=== PATIENT | female | born 1950 | race Caucasian/White ===

== ENCOUNTER 2018-02-11 10:51 | Emergency (ER) | payer MEDICARE ==
[~2018-02-11] VITALS: Ht 152.4 cm; Wt 56.2 kg
[~2018-02-11 10:51] MED LIST: AMLO10 PO; AMLO5 PO; ASPI81CH; ASPI81CH PO; CYCL10 PO; GERITOL; NAPR220 PO; Prozac20 MG PO
[2018-02-11 11:31] LABS: BASOPHILS ABSOLUTE AUTO 0.05 K/mm3 (0.00-0.23); BASOPHILS PERCENT AUTO 1 % (0-2); EOSINOPHILS ABSOLUTE AUTO 0.04 K/mm3 (0.00-0.68); EOSINOPHILS PERCENT AUTO 1 % (0-6); Hematocrit 44.4 % (33.0-51.0); Hemoglobin 15.2 g/dL (11.5-16.0); IMMATURE GRAN ABSOLUTE AUTO 0.02 K/mm3 (0.00-0.10); IMMATURE GRAN PERCENT AUTO 0 % (0-1); LYMPHOCYTES ABSOLUTE AUTO 2.51 K/mm3 (0.84-5.20); LYMPHOCYTES PERCENT AUTO 32 % (21-46); MONOCYTES ABSOLUTE AUTO 0.37 K/mm3 (0.16-1.47); MONOCYTES PERCENT AUTO 5 % (4-13); Mean Corpuscular HGB 31.1 pg (26.0-34.0); Mean Corpuscular HGB Conc 34.2 g/dL (31.5-36.5); Mean Corpuscular Volume 91 fL (80-100); NEUTROPHILS PERCENT AUTO 62 % (41-73); Platelet Count 273 K/mm3 (150-400); RDW Coefficient Variation 12.9 % (11.7-14.2); RDW Standard Deviation 43.2 fL (35.1-46.3); Red Blood Cell Count 4.89 M/mm3 (3.80-5.20); White Blood Cell Count 7.89 K/mm3 (4.00-11.30)
[2018-02-11 11:54] LABS: Troponin I <0.015 ng/mL (0.000-0.040)
[2018-02-11 11:56] LABS: Alanine Aminotransfer (ALT/SGP 25 U/L (12-78); Albumin, Blood 3.6 g/dL (3.4-5.0); Albumin/Globulin Ratio 0.8 (0.8-1.8); Alk Phos 109 U/L (50-136); Anion Gap 9 mmol/L (6-16); Aspartate Aminotrans (AST/SGOT 25 U/L (12-37); Bilirubin, Total 0.4 mg/dL (0.1-1.0); Blood Urea Nitrogen 23 mg/dL (8-24); Bun/Creatinine Ratio 13.5 (12.0-20.0); CO2, Blood 26 mmol/L (21-32); Calcium, Blood 9.2 mg/dL (8.5-10.1); Chloride, Blood 103 mmol/L (98-108); Globulin, Blood 4.3 g/dL (2.2-4.0); Glomerular Filtration Rate 32 (60-); Glucose, Blood 115 mg/dL (70-99); Sodium, Blood 138 mmol/L (136-145); Total Protein, Blood 7.9 g/dL (6.4-8.2)
[2018-02-11] MEDS ORDERED: Coreg6.25 MG PO (12:52)
[2018-02-11] MEDS ORDERED: Amlodipine Besy10 MG PO (12:52)
== END 2018-02-11 13:04 | disposition home or self-care (01) ==
LOC: ER 10:51
PROVIDERS: Emergency Medicine
DX: I12.9 Hypertensive chronic kidney disease with stage 1 through stage 4 chronic kidney disease, or unspecified chronic kidney disease (principal); N18.9 Chronic kidney disease, unspecified; Z88.2 Allergy status to sulfonamides; Z88.5 Allergy status to narcotic agent; Z88.8 Allergy status to other drugs, medicaments and biological substances; Z79.899 Other long term (current) drug therapy; Z79.82 Long term (current) use of aspirin
CPT/HCPCS: 36415; 80053; 84484; 85025; 93005; 93010; 99283-25

== ENCOUNTER 2018-02-13 19:29 | Inpatient (IN) | payer MEDICARE ==
[~2018-02-13] VITALS: Ht 162.6 cm; Wt 54.1 kg
[~2018-02-13 19:29] MED LIST changes: +Amlodipine Besy10 MG PO; +Coreg6.25 MG PO
[2018-02-13 20:16] LABS: BASOPHILS ABSOLUTE AUTO 0.03 K/mm3 (0.00-0.23); BASOPHILS PERCENT AUTO 0 % (0-2); EOSINOPHILS ABSOLUTE AUTO 0.12 K/mm3 (0.00-0.68); EOSINOPHILS PERCENT AUTO 1 % (0-6); Hematocrit 43.2 % (33.0-51.0); Hemoglobin 14.9 g/dL (11.5-16.0); IMMATURE GRAN ABSOLUTE AUTO 0.01 K/mm3 (0.00-0.10); IMMATURE GRAN PERCENT AUTO 0 % (0-1); LYMPHOCYTES ABSOLUTE AUTO 3.11 K/mm3 (0.84-5.20); LYMPHOCYTES PERCENT AUTO 37 % (21-46); MONOCYTES ABSOLUTE AUTO 0.47 K/mm3 (0.16-1.47); MONOCYTES PERCENT AUTO 6 % (4-13); Mean Corpuscular HGB Conc 34.5 g/dL (31.5-36.5); Mean Corpuscular Volume 90 fL (80-100); Mean Platelet Volume 10.5 fL (9.1-12.4); NEUTROPHILS ABSOLUTE AUTO 4.58 K/mm3 (1.96-9.15); NEUTROPHILS PERCENT AUTO 55 % (41-73); Platelet Count 255 K/mm3 (150-400); RDW Coefficient Variation 12.7 % (11.7-14.2); RDW Standard Deviation 42.4 fL (35.1-46.3); White Blood Cell Count 8.32 K/mm3 (4.00-11.30)
[2018-02-13 20:31] LABS: Alanine Aminotransfer (ALT/SGP 25 U/L (12-78); Albumin, Blood 3.4 g/dL (3.4-5.0); Albumin/Globulin Ratio 0.8 (0.8-1.8); Alk Phos 104 U/L (50-136); Anion Gap 9 mmol/L (6-16); Aspartate Aminotrans (AST/SGOT 27 U/L (12-37); Bilirubin, Total 0.3 mg/dL (0.1-1.0); Blood Urea Nitrogen 29 mg/dL (8-24); Bun/Creatinine Ratio 16.3 (12.0-20.0); CO2, Blood 25 mmol/L (21-32); Calcium, Blood 9.1 mg/dL (8.5-10.1); Chloride, Blood 104 mmol/L (98-108); Creatinine, Blood 1.78 mg/dL (0.40-1.00); Ethanol (Alcohol), Blood, Med <3 mg/dL; Globulin, Blood 4.3 g/dL (2.2-4.0); Glomerular Filtration Rate 30 (60-); Glucose, Blood 144 mg/dL (70-99); Potassium, Blood 3.9 mmol/L (3.5-5.5); Sodium, Blood 138 mmol/L (136-145); Total Protein, Blood 7.7 g/dL (6.4-8.2); Troponin I <0.015 ng/mL (0.000-0.040)
[2018-02-14 06:04] LABS: Source, Urine Clean Catch
[2018-02-14 06:25] LABS: Bilirubin, Urine Neg (Neg); Blood, Urine Neg (Neg); Glucose Qualitative, Urine Neg (Neg); Ketones, Urine Neg (Neg); Leukocyte Esterase, Urine 1+ (Neg); Nitrite, Urine Neg (Neg); Protein, Urine 1+ (Neg); Urobilinogen, Urine NORM (Normal)
[2018-02-14 06:30] LABS: U Cannabinoids Screen DETECTED
[2018-02-14 06:31] LABS: U Amphetamine Screen Not Detected; U Barbituate Screen Not Detected; U Benzodiazapine Screen Not Detected; U Buprenorphine Screen Not Detected; U Cocaine Screen Not Detected; U Methadone Screen Not Detected; U Methamphetamine Screen Not Detected; U Opiates Screen Not Detected; U Oxycodone Screen Not Detected; U Phencyclidine Screen Not Detected; U Propoxyphene Screen Not Detected
[2018-02-14 06:43] LABS: Appearance, Urine Clear (Clear); Color, Urine Yellow (P-Yellow)
[2018-02-14 06:44] LABS: Squamous Epithelial Cells Mod /hpf (Few)
[2018-02-14 06:45] LABS: Bacteria Rare /hpf
[2018-02-14 08:13] LABS: BASOPHILS ABSOLUTE AUTO 0.04 K/mm3 (0.00-0.23); BASOPHILS PERCENT AUTO 1 % (0-2); EOSINOPHILS ABSOLUTE AUTO 0.08 K/mm3 (0.00-0.68); EOSINOPHILS PERCENT AUTO 1 % (0-6); Hematocrit 43.5 % (33.0-51.0); IMMATURE GRAN ABSOLUTE AUTO 0.01 K/mm3 (0.00-0.10); IMMATURE GRAN PERCENT AUTO 0 % (0-1); LYMPHOCYTES ABSOLUTE AUTO 2.37 K/mm3 (0.84-5.20); LYMPHOCYTES PERCENT AUTO 36 % (21-46); MONOCYTES ABSOLUTE AUTO 0.39 K/mm3 (0.16-1.47); MONOCYTES PERCENT AUTO 6 % (4-13); Mean Corpuscular HGB 31.1 pg (26.0-34.0); Mean Corpuscular HGB Conc 34.5 g/dL (31.5-36.5); Mean Corpuscular Volume 90 fL (80-100); Mean Platelet Volume 10.2 fL (9.1-12.4); NEUTROPHILS ABSOLUTE AUTO 3.66 K/mm3 (1.96-9.15); NEUTROPHILS PERCENT AUTO 56 % (41-73); Platelet Count 258 K/mm3 (150-400); RDW Coefficient Variation 12.8 % (11.7-14.2); RDW Standard Deviation 42.5 fL (35.1-46.3); Red Blood Cell Count 4.82 M/mm3 (3.80-5.20); White Blood Cell Count 6.55 K/mm3 (4.00-11.30)
[2018-02-14 08:55] LABS: Alanine Aminotransfer (ALT/SGP 22 U/L (12-78); Albumin, Blood 3.4 g/dL (3.4-5.0); Albumin/Globulin Ratio 0.8 (0.8-1.8); Alk Phos 102 U/L (50-136); Anion Gap 8 mmol/L (6-16); Aspartate Aminotrans (AST/SGOT 22 U/L (12-37); Bilirubin, Total 0.4 mg/dL (0.1-1.0); Blood Urea Nitrogen 26 mg/dL (8-24); Bun/Creatinine Ratio 16.7 (12.0-20.0); CHOL/HDL RATIO 4.5; CO2, Blood 25 mmol/L (21-32); Calcium, Blood 9.2 mg/dL (8.5-10.1); Chloride, Blood 107 mmol/L (98-108); Cholesterol 232 mg/dL (50-200); Creatinine, Blood 1.56 mg/dL (0.40-1.00); Globulin, Blood 4.3 g/dL (2.2-4.0); Glomerular Filtration Rate 35 (60-); Glucose, Blood 89 mg/dL (70-99); HDL Cholesterol 51 mg/dL (>39); LDL/HDL RATIO 3.1; Low Density Lipoprotein Chol 156 mg/dL (0-110); Sodium, Blood 140 mmol/L (136-145); Total Protein, Blood 7.7 g/dL (6.4-8.2); Triglycerides 126 mg/dL (30-160); Very Low Density Lipoprot Chol 25 mg/dL (6-32)
[2018-02-14 18:31] LABS: Uric Acid, Blood 5.4 mg/dL (2.6-6.0)
[2018-02-14 18:33] LABS: Thyroid Stimulating Hormone 1.97 uIU/mL (0.360-4.800)
[2018-02-15 06:03] LABS: BASOPHILS ABSOLUTE AUTO 0.03 K/mm3 (0.00-0.23); BASOPHILS PERCENT AUTO 1 % (0-2); EOSINOPHILS PERCENT AUTO 2 % (0-6); Hematocrit 40.8 % (33.0-51.0); Hemoglobin 13.9 g/dL (11.5-16.0); IMMATURE GRAN ABSOLUTE AUTO 0.01 K/mm3 (0.00-0.10); IMMATURE GRAN PERCENT AUTO 0 % (0-1); LYMPHOCYTES ABSOLUTE AUTO 2.94 K/mm3 (0.84-5.20); LYMPHOCYTES PERCENT AUTO 48 % (21-46); MONOCYTES ABSOLUTE AUTO 0.42 K/mm3 (0.16-1.47); MONOCYTES PERCENT AUTO 7 % (4-13); Mean Corpuscular HGB 30.8 pg (26.0-34.0); Mean Corpuscular HGB Conc 34.1 g/dL (31.5-36.5); Mean Corpuscular Volume 90 fL (80-100); Mean Platelet Volume 10.1 fL (9.1-12.4); NEUTROPHILS ABSOLUTE AUTO 2.64 K/mm3 (1.96-9.15); NEUTROPHILS PERCENT AUTO 43 % (41-73); Platelet Count 223 K/mm3 (150-400); RDW Coefficient Variation 12.7 % (11.7-14.2); RDW Standard Deviation 42.2 fL (35.1-46.3); Red Blood Cell Count 4.52 M/mm3 (3.80-5.20); White Blood Cell Count 6.14 K/mm3 (4.00-11.30)
[2018-02-15 06:29] LABS: Anion Gap 9 mmol/L (6-16); Blood Urea Nitrogen 30 mg/dL (8-24); Bun/Creatinine Ratio 17.8 (12.0-20.0); CO2, Blood 25 mmol/L (21-32); Calcium, Blood 8.8 mg/dL (8.5-10.1); Chloride, Blood 106 mmol/L (98-108); Creatinine, Blood 1.69 mg/dL (0.40-1.00); Glomerular Filtration Rate 32 (60-); Glucose, Blood 81 mg/dL (70-99); Magnesium, Blood 2.3 mg/dL (1.6-2.4); Phosphorus, Blood 3.7 mg/dL (2.5-4.9); Potassium, Blood 4.2 mmol/L (3.5-5.5); Sodium, Blood 140 mmol/L (136-145)
[2018-02-15 23:13] LABS: Protein, Urine Quantitative 14.2 mg/dL (0.0-11.9)
[2018-02-16 05:11] LABS: BASOPHILS ABSOLUTE AUTO 0.03 K/mm3 (0.00-0.23); BASOPHILS PERCENT AUTO 1 % (0-2); EOSINOPHILS ABSOLUTE AUTO 0.07 K/mm3 (0.00-0.68); EOSINOPHILS PERCENT AUTO 1 % (0-6); Hematocrit 38.5 % (33.0-51.0); Hemoglobin 12.9 g/dL (11.5-16.0); IMMATURE GRAN ABSOLUTE AUTO 0.01 K/mm3 (0.00-0.10); IMMATURE GRAN PERCENT AUTO 0 % (0-1); LYMPHOCYTES ABSOLUTE AUTO 3.21 K/mm3 (0.84-5.20); LYMPHOCYTES PERCENT AUTO 52 % (21-46); MONOCYTES ABSOLUTE AUTO 0.38 K/mm3 (0.16-1.47); MONOCYTES PERCENT AUTO 6 % (4-13); Mean Corpuscular HGB 30.4 pg (26.0-34.0); Mean Corpuscular HGB Conc 33.5 g/dL (31.5-36.5); Mean Corpuscular Volume 91 fL (80-100); Mean Platelet Volume 10.4 fL (9.1-12.4); NEUTROPHILS ABSOLUTE AUTO 2.45 K/mm3 (1.96-9.15); NEUTROPHILS PERCENT AUTO 40 % (41-73); Platelet Count 220 K/mm3 (150-400); RDW Coefficient Variation 12.7 % (11.7-14.2); RDW Standard Deviation 42.3 fL (35.1-46.3); Red Blood Cell Count 4.25 M/mm3 (3.80-5.20); White Blood Cell Count 6.15 K/mm3 (4.00-11.30)
[2018-02-16] MEDS ORDERED: CARV6.25 PO (13:20)
[2018-02-16] MEDS ORDERED: ACET325 PO (13:21)
[2018-02-16] MEDS ORDERED: ATOR40TA PO (13:22)
[2018-02-16] MEDS ORDERED: CLON.1 PO (13:23)
[2018-02-16] MEDS ORDERED: DOCU100 PO (13:24)
[2018-02-16] MEDS ORDERED: HYDR10 PO (13:27)
[2018-02-16] MEDS ORDERED: SUPPORT237 ML PO (13:29)
[2018-02-18 20:07] LABS: METANEPHRINE, UR 64 ug/L (Undefined); NORMETANEPHRINE, UR 319 ug/L (Undefined)
[2018-02-20 06:08] LABS: ALDOS/RENIN RATIO 2.1 (0.0-30.0); ALDOSTERONE 11.1 ng/dL (0.0-30.0)
== END 2018-02-16 15:18 | disposition home or self-care (01) | DRG 65 ==
LOC: ER 19:29 → MEDS 19:30 → ER 19:30 → MEDS 22:08
PROVIDERS: Emergency Medicine; Family Medicine; Internal Medicine Nephrology
DX: I63.9 Cerebral infarction, unspecified (principal); N17.9 Acute kidney failure, unspecified; G81.94 Hemiplegia, unspecified affecting left nondominant side; M19.90 Unspecified osteoarthritis, unspecified site; R40.2412 Glasgow coma scale score 13-15, at arrival to emergency department; W17.89XA Other fall from one level to another, initial encounter; Y92.9 Unspecified place or not applicable; F17.200 Nicotine dependence, unspecified, uncomplicated; S20.219A Contusion of unspecified front wall of thorax, initial encounter; E78.00 Pure hypercholesterolemia, unspecified; N18.3 Chronic kidney disease, stage 3 (moderate); I12.9 Hypertensive chronic kidney disease with stage 1 through stage 4 chronic kidney disease, or unspecified chronic kidney disease; F12.20 Cannabis dependence, uncomplicated; R29.6 Repeated falls; R79.9 Abnormal finding of blood chemistry, unspecified; J44.9 Chronic obstructive pulmonary disease, unspecified; E86.9 Volume depletion, unspecified; R77.9 Abnormality of plasma protein, unspecified; E86.1 Hypovolemia; R80.9 Proteinuria, unspecified; R29.810 Facial weakness; Z86.73 Personal history of transient ischemic attack (TIA), and cerebral infarction without residual deficits; R47.81 Slurred speech; Z79.82 Long term (current) use of aspirin
CPT/HCPCS: 36415; 70450; 70551; 71045; 72125; 76770; 80048; 80053; 80061; 80069; 81001; 81050; 82088; 83735; 83835; 84156; 84244; 84443; 84484; 84550; 85025; 85651; 86850; 86900; 86901; 87086; 92507; 92523; 93005; 93010; 93975; 97161; 97165; 97535; 99285-25; G0480; G8978; G8979; G8987; G8988; G9165; G9166; G9167; J0360; J1650; J3010; J7030

== ENCOUNTER → 2018-02-19 | Outpatient (CLI) | payer MEDICARE ==
[~2018-02-19] MED LIST changes: +ACET325 PO; +ATOR40TA PO; +CARV6.25 PO; +CLON.1 PO; +DOCU100 PO; +HYDR10 PO; +HYDR1TAB94 PO; +SUPPORT237 ML PO
== END | disposition home or self-care (01) ==
LOC: LAB 13:30 → LAB SHORT 13:30
DX: N18.4 Chronic kidney disease, stage 4 (severe) (principal); N39.0 Urinary tract infection, site not specified
CPT/HCPCS: 87086

== ENCOUNTER 2018-02-25 08:19 | Emergency (ER) | payer MEDICARE ==
[~2018-02-25] VITALS: Ht 152.4 cm; Wt 56.7 kg
[~2018-02-25 08:19] MED LIST changes: -HYDR1TAB94 PO
[2018-02-25] MEDS ORDERED: HYDR1TAB94 PO (09:49)
== END 2018-02-25 09:59 | disposition home or self-care (01) ==
LOC: ER 08:19
DX: S27.0XXA Traumatic pneumothorax, initial encounter (principal); S22.32XA Fracture of one rib, left side, initial encounter for closed fracture; I10 Essential (primary) hypertension; F17.200 Nicotine dependence, unspecified, uncomplicated; Z88.2 Allergy status to sulfonamides; Z88.5 Allergy status to narcotic agent; Z88.8 Allergy status to other drugs, medicaments and biological substances; Z79.899 Other long term (current) drug therapy; Z79.82 Long term (current) use of aspirin; W01.0XXA Fall on same level from slipping, tripping and stumbling without subsequent striking against object, initial encounter
CPT/HCPCS: 71046; 99283-25

== ENCOUNTER 2018-02-28 01:38 | Emergency (ER) | payer MEDICARE ==
[~2018-02-28] VITALS: Ht 152.4 cm; Wt 56.7 kg
[~2018-02-28 01:38] MED LIST changes: +HYDR1TAB94 PO
[2018-02-28 03:30] LABS: Calcium, Ionized (POC) 1.13 mmol/L (1.10-1.46); Chloride (POC) 104 mmol/L (98-108); Creatinine (POC) 1.4 mg/dL (0.6-1.0); Glucose (ISTAT POC) 104 mg/dL (70-99); Hemoglobin (POC) 14.6 g/dL (12.0-16.0); Potassium (POC) 3.7 mmol/L (3.5-5.5); Sodium (POC) 138 mmol/L (135-148); Total CO2 (POC) 22 mmol/L (21-32)
[2018-02-28 03:36] LABS: BASOPHILS ABSOLUTE AUTO 0.02 K/mm3 (0.00-0.23); BASOPHILS PERCENT AUTO 0 % (0-2); EOSINOPHILS ABSOLUTE AUTO 0.06 K/mm3 (0.00-0.68); EOSINOPHILS PERCENT AUTO 1 % (0-6); Hematocrit 42.2 % (33.0-51.0); IMMATURE GRAN ABSOLUTE AUTO 0.02 K/mm3 (0.00-0.10); IMMATURE GRAN PERCENT AUTO 0 % (0-1); LYMPHOCYTES ABSOLUTE AUTO 1.85 K/mm3 (0.84-5.20); LYMPHOCYTES PERCENT AUTO 21 % (21-46); MONOCYTES ABSOLUTE AUTO 0.56 K/mm3 (0.16-1.47); MONOCYTES PERCENT AUTO 6 % (4-13); Mean Corpuscular HGB 30.7 pg (26.0-34.0); Mean Corpuscular HGB Conc 33.2 g/dL (31.5-36.5); Mean Corpuscular Volume 93 fL (80-100); Mean Platelet Volume 10.4 fL (9.1-12.4); NEUTROPHILS PERCENT AUTO 71 % (41-73); Platelet Count 241 K/mm3 (150-400); RDW Coefficient Variation 12.7 % (11.7-14.2); RDW Standard Deviation 43.2 fL (35.1-46.3); Red Blood Cell Count 4.56 M/mm3 (3.80-5.20); White Blood Cell Count 8.71 K/mm3 (4.00-11.30)
[2018-02-28 03:49] LABS: Albumin, Blood 3.1 g/dL (3.4-5.0); Albumin/Globulin Ratio 0.7 (0.8-1.8); Bilirubin, Total 0.4 mg/dL (0.1-1.0); Bun/Creatinine Ratio 13.3 (12.0-20.0); Creatinine, Blood 1.35 mg/dL (0.40-1.00); Globulin, Blood 4.6 g/dL (2.2-4.0); Potassium, Blood 3.8 mmol/L (3.5-5.5); Total Protein, Blood 7.7 g/dL (6.4-8.2)
[2018-02-28] MEDS ORDERED: Colace100 MG PO (04:35)
== END 2018-02-28 05:06 | disposition home or self-care (01) ==
LOC: ER 01:38
PROVIDERS: Emergency Medicine
DX: S22.42XA Multiple fractures of ribs, left side, initial encounter for closed fracture (principal); K59.00 Constipation, unspecified; I10 Essential (primary) hypertension; F17.200 Nicotine dependence, unspecified, uncomplicated; Z88.2 Allergy status to sulfonamides; Z88.5 Allergy status to narcotic agent; Z88.8 Allergy status to other drugs, medicaments and biological substances; Z79.899 Other long term (current) drug therapy; Z79.82 Long term (current) use of aspirin; W19.XXXA Unspecified fall, initial encounter
CPT/HCPCS: 36415; 74019; 74176; 80047; 80053; 83690; 85014; 85025; 96374; 99284-25

== ENCOUNTER 2018-08-12 10:43 | Inpatient (IN) | payer MEDICARE ==
[~2018-08-12] VITALS: Ht 152.4 cm; Wt 55.1 kg
[~2018-08-12 10:43] MED LIST changes: +Colace100 MG PO
[2018-08-12 11:31] LABS: BASOPHILS ABSOLUTE AUTO 0.01 K/mm3 (0.00-0.23); BASOPHILS PERCENT AUTO 0 % (0-2); EOSINOPHILS ABSOLUTE AUTO 0.01 K/mm3 (0.00-0.68); EOSINOPHILS PERCENT AUTO 0 % (0-6); Hematocrit 43.1 % (33.0-51.0); IMMATURE GRAN ABSOLUTE AUTO 0.01 K/mm3 (0.00-0.10); IMMATURE GRAN PERCENT AUTO 0 % (0-1); LYMPHOCYTES ABSOLUTE AUTO 1.75 K/mm3 (0.84-5.20); LYMPHOCYTES PERCENT AUTO 42 % (21-46); MONOCYTES ABSOLUTE AUTO 0.46 K/mm3 (0.16-1.47); MONOCYTES PERCENT AUTO 11 % (4-13); Mean Corpuscular HGB 30.5 pg (26.0-34.0); Mean Corpuscular HGB Conc 32.5 g/dL (31.5-36.5); Mean Corpuscular Volume 94 fL (80-100); NEUTROPHILS ABSOLUTE AUTO 1.92 K/mm3 (1.96-9.15); NEUTROPHILS PERCENT AUTO 46 % (41-73); Platelet Count 224 K/mm3 (150-400); RDW Coefficient Variation 14.5 % (11.7-14.2); Red Blood Cell Count 4.59 M/mm3 (3.80-5.20); White Blood Cell Count 4.16 K/mm3 (4.00-11.30)
[2018-08-12 11:53] LABS: Albumin/Globulin Ratio 0.7 (0.8-1.8); Bilirubin, Total 0.3 mg/dL (0.1-1.0); Calcium, Blood 8.6 mg/dL (8.5-10.1); Creatinine, Blood 1.36 mg/dL (0.40-1.00); Globulin, Blood 4.2 g/dL (2.2-4.0); Potassium, Blood 3.7 mmol/L (3.5-5.5); Total Protein, Blood 7.2 g/dL (6.4-8.2)
[2018-08-12 14:34] LABS: Source, Urine Catheter
[2018-08-12 14:45] LABS: Appearance, Urine Clear (Clear); Bilirubin, Urine Neg (Neg); Blood, Urine 3+ (Neg); Color, Urine Yellow (P-Yellow); Glucose Qualitative, Urine Neg (Neg); Ketones, Urine Neg (Neg); Leukocyte Esterase, Urine Neg (Neg); Nitrite, Urine Neg (Neg); Protein, Urine 2+ (Neg); Specific Gravity, Urine 1.015 (1.003-1.022); Urobilinogen, Urine NORM (Normal); pH, Urine 6.5 (5.0-8.0)
[2018-08-12 15:05] LABS: White Blood Cells, Urine 0-2 /hpf (0-5)
[2018-08-12 15:06] LABS: Bacteria Few /hpf; Squamous Epithelial Cells Not Seen /hpf (Few)
--- NOTE | 2018-08-12 18:22 | NUR ---
ARRIVAL TO ROOM VIA STRETCHER. AWAKE [facility] PERSON, PLACE UNSURE OF TIME OR DAY. CLEAR SPEECH. NOTED LEFT SIDED WEAKNESS AND MCMULLEN DRIFT. FAMILY NUMBERS PLACED ON ROUNDING BOARD. BED LOW AND IN LOCKED POSITION CALL LIGHT WITHIN REACH.
[2018-08-13 05:16] LABS: BASOPHILS ABSOLUTE AUTO 0.01 K/mm3 (0.00-0.23); BASOPHILS PERCENT AUTO 0 % (0-2); EOSINOPHILS ABSOLUTE AUTO 0.01 K/mm3 (0.00-0.68); EOSINOPHILS PERCENT AUTO 0 % (0-6); Hematocrit 40.6 % (33.0-51.0); Hemoglobin 13.4 g/dL (11.5-16.0); IMMATURE GRAN PERCENT AUTO 0 % (0-1); LYMPHOCYTES ABSOLUTE AUTO 2.27 K/mm3 (0.84-5.20); LYMPHOCYTES PERCENT AUTO 54 % (21-46); MONOCYTES ABSOLUTE AUTO 0.33 K/mm3 (0.16-1.47); MONOCYTES PERCENT AUTO 8 % (4-13); Mean Corpuscular HGB 29.8 pg (26.0-34.0); Mean Platelet Volume 10.4 fL (9.1-12.4); NEUTROPHILS PERCENT AUTO 38 % (41-73); Platelet Count 214 K/mm3 (150-400); RDW Coefficient Variation 14.4 % (11.7-14.2); RDW Standard Deviation 46.9 fL (35.1-46.3); Red Blood Cell Count 4.49 M/mm3 (3.80-5.20); White Blood Cell Count 4.22 K/mm3 (4.00-11.30)
[2018-08-13 05:22] LABS: Mean Corpuscular Volume 90 fL (80-100)
[2018-08-13 05:32] LABS: Albumin, Blood 2.7 g/dL (3.4-5.0); Anion Gap 9 mmol/L (6-16); Blood Urea Nitrogen 16 mg/dL (8-24); CO2, Blood 24 mmol/L (21-32); Calcium, Blood 8.5 mg/dL (8.5-10.1); Chloride, Blood 107 mmol/L (98-108); Creatinine, Blood 1.07 mg/dL (0.40-1.00); Glomerular Filtration Rate 54 (60-); Glucose, Blood 85 mg/dL (70-99); Phosphorus, Blood 2.5 mg/dL (2.5-4.9); Potassium, Blood 3.5 mmol/L (3.5-5.5); Sodium, Blood 140 mmol/L (136-145)
--- NOTE | 2018-08-13 05:40 | NUR ---
Rn summary: Patient was a new admit at the end of the day shift. Pt is alert and oriented but seems a bit off, restless and flat. Pt had a CVA in the past with Left sided weakness. Pt states she fell out of bed at home Wednesday. Pt has equal band saw operator, she is able to move dre legs but left is obviously weaker. She has a bates cath with yellow urine. Pt will not leave cath stat lock on leg, states she feels tied down. Pt BP has been elevated since admit to ED. Pt BP was 191/113, received catapres 0.1mg at 1950. BP repeated at 0 and bp was 191/101, pt received apresoline 10mg IV with moderate releif. BP at 0210 was 143/113. Pt has bruised and scraped knees from home. Pt has had URI at home prior to the weakness, lungs with expiratory courseness. Call light in reach. Pt has not used. Bed alarm on for safety. Frequent monitoring.
[2018-08-13 13:11] LABS: Adenovirus Not Detected (NOT DETECT); Bordetella pertussis Not Detected (NOT DETECT); Chlamydophila pneumoniae Not Detected (NOT DETECT); Coronavirus 229E Not Detected (NOT DETECT); Coronavirus HKU1 Not Detected (NOT DETECT); Coronavirus NL63 Not Detected (NOT DETECT); Coronavirus OC43 Not Detected (NOT DETECT); Human Metapneumovirus Not Detected (NOT DETECT); Human Rhinovirus/Enterovirus Not Detected (NOT DETECT); Influenza A Not Detected (NOT DETECT); Influenza A/2009-H1 Not Detected (NOT DETECT); Influenza A/H1 Not Detected (NOT DETECT); Influenza A/H3 Not Detected (NOT DETECT); Influenza B Not Detected (NOT DETECT); Mycoplasma pneumoniae Not Detected (NOT DETECT); Parainfluenza Virus 1 Not Detected (NOT DETECT); Parainfluenza Virus 2 Not Detected (NOT DETECT); Parainfluenza Virus 3 Not Detected (NOT DETECT); Parainfluenza Virus 4 Not Detected (NOT DETECT); Respiratory Syncytial Virus Not Detected (NOT DETECT)
--- NOTE | 2018-08-13 18:09 | NUR ---
SUMMARY PT SITTING UP IN THE CHAIR AT THE BEDSIDE EATING HER DINNER, PT HAD A FALL TODAY AND DID NOT SUSTAIN ANY INJURIES, DR LEON NOTIFIED, FAMILY DEVELOPMENT SPECIALIST NOTIFIED, AND NOTIFIED PT'S SON "TINY" WHEN HE ARRIVED TO VISIT WITH THE PT THIS AFTERNOON, PT HAS BEEN ORIENTED AND RE-ORIENTED TO THE CALL LIGHT AND SYSTEM, PT IS PLEASANT AND COOPERATIVE BUT FORGETFUL, PT HAS HAD A CVA IN THE PAST AND HAS L SIDED WEAKNESS, THERAPY HAS BEEN IN TO WORK WITH THE PT AND SHE IS A 1-2 PERSON ASSIST WITH THE GAIT BELT, PT ABLE TO TAKE HER PILLS WHOLE, VSS, NO ACUTE CHANGES, WILL CONT TO MONITOR
--- NOTE | 2018-08-13 18:40 | NUR ---
TRANSFER PT TRANSFERRED TO ROOM 349, PT'S SON TINY NOTIFIED
--- NOTE | 2018-08-14 05:03 | NUR ---
SHIFT SUMMARY PT ALERT AND ORIENTED. USES BSC DURING THE NIGHT WITH AO1 STAFF. PT WEAK ON THE LEFT SIDE. PT CONTINENT OF URINE T/O NIGHT. SLEPT WELL, NO ACUTE EVENTS NOTED DURING THE NIGHT. WILL CONTINUE TO MONITOR.
[2018-08-14 05:19] LABS: Hematocrit 40.8 % (33.0-51.0); Hemoglobin 13.5 g/dL (11.5-16.0); Mean Corpuscular HGB 30.1 pg (26.0-34.0); Mean Corpuscular HGB Conc 33.1 g/dL (31.5-36.5); Mean Corpuscular Volume 91 fL (80-100); Mean Platelet Volume 10.2 fL (9.1-12.4); Platelet Count 208 K/mm3 (150-400); RDW Coefficient Variation 14.4 % (11.7-14.2); RDW Standard Deviation 47.1 fL (35.1-46.3); Red Blood Cell Count 4.49 M/mm3 (3.80-5.20); White Blood Cell Count 4.89 K/mm3 (4.00-11.30)
[2018-08-14 05:37] LABS: Bun/Creatinine Ratio 20.3 (12.0-20.0); Calcium, Blood 8.4 mg/dL (8.5-10.1); Creatinine, Blood 1.18 mg/dL (0.40-1.00); Potassium, Blood 3.8 mmol/L (3.5-5.5)
--- NOTE | 2018-08-14 18:20 | NUR ---
SHIFT SUMMARY PT A&O TO PERSON AND PLACE. FORGETFUL AT TIMES. 1-2 PERSON ASSIST WITH FWW AND GB TO BSC. PT HAS LEFT SIDED WEAKNESS. PT REPORTS BACK PAIN, MEDICATED X1 WITH TYLENOL WITH POSITIVE RESULTS. PT DENIES SOB AND N/V DURING SHIFT. ELEVATED BP NOTED, OTHER VSS. NO OTHER ACUTE CHANGES NOTED DURING SHIFT, WILL CONTINUE TO MONITOR UNITL REPORT GIVEN TO ONCOMING RN. AWAITING CARE MANAGEMENT ASSISTANCE WITH SAFE DISCHARGE PLANNING.
--- NOTE | 2018-08-15 04:57 | NUR ---
SHIFT SUMMARY PT SLEPT FAIR, HAS BEEN UP TO BSC SEVERAL TIMES. SOMETIMES PT RINGS AND SOMETIMES SHE DOES NOT, BED ALARM ON. NO ACUTE EVENTS NOTED DURING THE NIGHT. WILL CONTINUE TO MONITOR.
--- NOTE | 2018-08-15 19:43 | NUR ---
SHIFT SUMMARY PT A&O TO PERSON AND PLACE. FORGETFUL AND IMPULSIVE THIS AM SETTING OFF BED ALARM WHEN SHE WOKE UP. PT REPORTS BACK BACK "LOW" AND DENIES NEED FOR MEDICATION. PT 2 PERSON ASSIST TO CHAIR AND BSC. LEFT SIDE WEAKNESS, DOES NOT USE HAND, ENCOURAGED TO USE HAND AND LEG. PT DENIES SOB AND N/V DURING SHIFT. >92% ON RA. PT WORKED WITH PT/OT DURING SHIFT. PT STATES SHE DOES NOT WANT TO GO TO [facility] OR [facility] FOR PT/OT AND STATES IT WAS DIFFICULT TO PAY FOR COPAYS IN AN OUTPATIENT CLINIC. ELEVATED BP NOTED, MEDICATED PER SCHEDULES MEDS, BP TRENDING DOWN. OTHER VSS. NO OTHER ACUTE CHANGES NOTE DURING SHIFT. REPORT GIVEN TO ONCOMING RN.
--- NOTE | 2018-08-16 07:43 | NUR ---
SHIFT SUMMARY ALERT, BUT REMAINS FORGETFUL AT TIMES. UP TO BSC MULTIPLE TIMES. THIS AM STATED PAIN R/T FEELING IF THERE IS A CATHETER. EXPLAIN THAT THERE IS NO CATHETER; DENIED NEED FOR PAIN MEDICATION. CAMERA ON; REPORTED MULTIPLE ATTEMPTS TO ESCAPE WELL DISROBING. HTN NOTED THROUGHOUT NIGHT; GIVEN HYDRALAZINE THIS AM PER PARAMETERS. OTHER VSS. REMINDED TO USE CALL LIGHT; IN WHICH PATIENT CONTINUED TO DO, ALTHOUGH, STATED SHE DID NOT LIKE TO USE THE CALL LIGHT. APPEARED TO REST OFF AND ON THROUGHOUT THE NIGHT. BED IN LOWEST POSITION. ALARM ON. CALL LIGHT IN REACH. CONTINUED TO MONITOR THROUGHOUT THE NIGHT. REPORT GIVEN TO ONCOMING RN.
--- NOTE | 2018-08-16 19:54 | NUR ---
SUMMARY- PT ALERT TO SELF, PLACE- DOESN'T KNOW THE YEAR OR THE PRESIDENT. UP TO BSC PRN TO VOID- REPORTED BURINIG THIS AM. DR JEFFERSON AWARE. UP TO CHAIR FOR MEALS, TOLERATING FOOD AND FLUIDS. PT'S BP HAD BEEN ELEVATED, WITH INCREASE OF MEDS CAME DOWN THIS PM. REPORT GIVEN TO ACCOUNTS PAYABLE TECHNICIAN RN. PT SEEMS TO BECOMING MORE AGITATED AND CONFUSED CLOSER TO THE EVENING TIME. TRIED TO PULL OUT IV, REPORTED BY BEATRICE AT 1930, REDIRECTED PT AND COBANED IV.
[2018-08-17 05:52] LABS: Albumin, Blood 2.9 g/dL (3.4-5.0); Anion Gap 9 mmol/L (6-16); Blood Urea Nitrogen 38 mg/dL (8-24); Bun/Creatinine Ratio 31.1 (12.0-20.0); CO2, Blood 24 mmol/L (21-32); Calcium, Blood 8.9 mg/dL (8.5-10.1); Chloride, Blood 106 mmol/L (98-108); Creatinine, Blood 1.22 mg/dL (0.40-1.00); Glomerular Filtration Rate 46 (60-); Glucose, Blood 89 mg/dL (70-99); Phosphorus, Blood 3.3 mg/dL (2.5-4.9); Sodium, Blood 139 mmol/L (136-145)
[2018-08-17 09:06] LABS: BASOPHILS ABSOLUTE AUTO 0.01 K/mm3 (0.00-0.23); BASOPHILS PERCENT AUTO 0 % (0-2); EOSINOPHILS ABSOLUTE AUTO 0.02 K/mm3 (0.00-0.68); EOSINOPHILS PERCENT AUTO 0 % (0-6); Hematocrit 39.8 % (33.0-51.0); IMMATURE GRAN ABSOLUTE AUTO 0.01 K/mm3 (0.00-0.10); IMMATURE GRAN PERCENT AUTO 0 % (0-1); LYMPHOCYTES ABSOLUTE AUTO 2.59 K/mm3 (0.84-5.20); LYMPHOCYTES PERCENT AUTO 43 % (21-46); MONOCYTES ABSOLUTE AUTO 0.33 K/mm3 (0.16-1.47); MONOCYTES PERCENT AUTO 6 % (4-13); Mean Corpuscular HGB 29.9 pg (26.0-34.0); Mean Corpuscular HGB Conc 32.7 g/dL (31.5-36.5); Mean Corpuscular Volume 92 fL (80-100); Mean Platelet Volume 10.8 fL (9.1-12.4); NEUTROPHILS ABSOLUTE AUTO 3.04 K/mm3 (1.96-9.15); NEUTROPHILS PERCENT AUTO 51 % (41-73); Platelet Count 215 K/mm3 (150-400); RDW Coefficient Variation 14.3 % (11.7-14.2); RDW Standard Deviation 47.7 fL (35.1-46.3); Red Blood Cell Count 4.35 M/mm3 (3.80-5.20)
--- NOTE | 2018-08-17 18:51 | NUR ---
SHIFT SUMMARY SON TINY IN VISITING. STATES HE WOULD LIKE TO TAKE HIS MOTHER HOME ON WEDNESDAY. STATES THAT HE WILL HAVE A CAREGIVER DURING THE DAY TO WATCH PATIENT THEN HE WOULD BE HOME TO WATCH DURING THE EVENING HOURS. PATIENT HAS HAD NO ACUTE CHANGES. SHE HAS BEEN WITHDRAWN TODAY REGARDING HER HOSPITAL STAY, EAGER TO DISCHARGE HOME SOON POSSIBLE.
--- NOTE | 2018-08-18 07:14 | NUR ---
SHIFT SUMMARY PT IS A 68 Y/O FEMALE, ADMITTED FOR IMPAIRED FUNCTIONAL MOBILITY R/T A CVA. SHE IS A&O X 3, THOUGH FORGETFUL AND IMPULSIVE IN GETTING OUT OF BED. SHE HAS L-SIDED WEAKNESS AND FOOT DROP, AND IS A 1PA UP TO BEDSIDE COMMODE. THE PT DENIED ANY COMPLAINTS OF PAIN OR NAUSEA, BUT DID REPORT SOME MILD SOB. VITALS WERE STABLE. NO OTHER ACUTE CHANGES IN PT CONDITION NOTED. WILL CONTINUE TO MONITOR AND TREAT PER EMAR.
--- NOTE | 2018-08-18 18:15 | NUR ---
SUMMARY PT SITTING UP IN BED EATING HER DINNER, PT'S MOOD HAS BEEN LABILE, PT CONCERNED ABOUT THE COST OF THINGS, SUCH AN ORANGE JUICE, OR AN EXTRA BLANKET, HOME HEALTH ORDERS WRITTEN, CARE MANAGEMENT AWARE, PT WILL GO HOME TOMORROW, PT DOES NOT CONSISTENTLY USE HER CALL LIGHT, BED ALARM ON FOR SAFETY, VSS, NO ACUTE CHANGES, WILL CONT TO MONITOR
--- NOTE | 2018-08-18 22:41 | NUR ---
DURING WEBMASTER, PT HAD A CHANGE IN MENTATION. SHE BECAME VERY CONFUSED AND AGITATED, ASKING TO TALK TO THE "PERSON IN CHARGE OF ALL THIS" AND ABOUT THE PEOPLE WHO WERE "LAYING PIPE AND DOING CONSTRUCTION" SHE "OWNS ALL THIS LAND". THE PT WAS ANGRY WHEN STAFF ATTEMPTED TO REORIENT, SAYING THAT SHE KNEW SHE WAS "IN THE SEPSIS SYSTEM" AND THAT SHE AND THE BUILDING WERE BEING "BURIED ALIVE". WHEN TOLD THAT THERE WERE NO POLICE IN THE HOSPITAL, THE PT GRABBED AT AND TRIED TO STRANGLE THE RN. THE HOSPITALIST CEDRIC RODRÍGUEZ WAS CONSULTED, AND A ONE TIME DOSE OF IM ZYPREXA ORDERED. SECURITY WAS CALLED TO HELP IN GIVING THE MEDICATION, AND PT WAS SETTLED BACK IN BED.
--- NOTE | 2018-08-19 06:24 | NUR ---
SHIFT SUMMARY PT IS A 68 Y/O FEMALE, ADMITTED FOR IMPAIRED FUNCTIONAL MOBILITY WITH L-SIDED WEAKNESS AND L FOOT DROP AFTER A CVA. THE PT HAS BEEN INCREASINGLY CONFUSED AND DISORIENTED THROUGH THE NIGHT (SEE PREVIOUS NOTE). AFTER RECEIVING IM ZYPREXA, THE PT SLEPT THROUGH THE NIGHT. SHE IS IMPULSIVE IN GETTING OUT OF BED, AND HAS BEEN ON A BED ALARM. SHE DENIED ANY ACUTE PAIN, NAUSEA OR SOB DURING THE NIGHT. PT'S AM BP WAS ELEVATED AT 192/99 THE PT REFUSED HER MIDNIGHT CATAPRES. ALL OTHER VITALS STABLE. NO OTHER ACUTE CHANGES IN PT CONDITION NOTED. WILL CONTINUE TO MONITOR AND TREAT PER EMAR.
[2018-08-19] MEDS ORDERED: SENN187 PO (07:41)
[2018-08-19] MEDS ORDERED: DOCU100 PO (07:41)
[2018-08-19] MEDS ORDERED: CLOP75 PO (07:43)
[2018-08-19] MEDS ORDERED: ACET500 PO (07:43)
--- NOTE | 2018-08-19 15:57 | NUR ---
SUMMARY/DISCHARGE PT DISCHARGED TO HOME WITH HOME [facility], PT'S SON HERE TO TAKE THE PT HOME, PT AND SON VERBALIZED UNDERSTANDING OF THE DISCHARGE INSTRUCTIONS REGARDING MEDICATIONS AND FOLLOW UP. [facility] HAS ALREADY MADE AN APPOINTMENT TO SEE THEM ON WEDNESDAY, PT TAKEN OUT SAFELY VIA WHEELCHAIR
== END 2018-08-19 15:50 | disposition home or self-care (01) | DRG 641 ==
LOC: ER 10:43 → MEDS 10:44 → EDPENDDIS 08-18 11:15 → ENPENDDIS 08-18 11:15 → MEDS 08-19 15:50
PROVIDERS: Emergency Medicine; Internal Medicine; ADMIT Internal Medicine
DX: E86.0 Dehydration (principal); I69.354 Hemiplegia and hemiparesis following cerebral infarction affecting left non-dominant side; J06.9 Acute upper respiratory infection, unspecified; F01.50 Vascular dementia, unspecified severity, without behavioral disturbance, psychotic disturbance, mood disturbance, and anxiety; I12.9 Hypertensive chronic kidney disease with stage 1 through stage 4 chronic kidney disease, or unspecified chronic kidney disease; Z51.5 Encounter for palliative care; N18.3 Chronic kidney disease, stage 3 (moderate); F32.9 Major depressive disorder, single episode, unspecified; F17.210 Nicotine dependence, cigarettes, uncomplicated; J44.9 Chronic obstructive pulmonary disease, unspecified; M54.9 Dorsalgia, unspecified; G89.29 Other chronic pain
CPT/HCPCS: 36415; 51702; 70450; 71046; 80048; 80053; 80069; 81001; 85025; 85027; 87486; 87581; 87633; 87798; 93005; 93010; 94640; 94760; 96361-59; 96372; 96374-59; 96376; 97110; 97116; 97162; 97166; 97530; 97535; 99285-25; G0378; J0360; J1650; J7030; J7120

== ENCOUNTER 2018-09-26 15:03 | Emergency (ER) | payer MEDICARE ==
[~2018-09-26] VITALS: Ht 152.4 cm; Wt 49.9 kg
[~2018-09-26 15:03] MED LIST changes: +ACET500 PO; +CLOP75 PO; +SENN187 PO
[2018-09-26 15:37] LABS: BASOPHILS ABSOLUTE AUTO 0.02 K/mm3 (0.00-0.23); BASOPHILS PERCENT AUTO 0 % (0-2); EOSINOPHILS ABSOLUTE AUTO 0.01 K/mm3 (0.00-0.68); EOSINOPHILS PERCENT AUTO 0 % (0-6); Hemoglobin 14.4 g/dL (11.5-16.0); IMMATURE GRAN ABSOLUTE AUTO 0.02 K/mm3 (0.00-0.10); IMMATURE GRAN PERCENT AUTO 0 % (0-1); LYMPHOCYTES ABSOLUTE AUTO 1.68 K/mm3 (0.84-5.20); LYMPHOCYTES PERCENT AUTO 23 % (21-46); MONOCYTES ABSOLUTE AUTO 0.43 K/mm3 (0.16-1.47); MONOCYTES PERCENT AUTO 6 % (4-13); Mean Corpuscular HGB 30.6 pg (26.0-34.0); Mean Corpuscular HGB Conc 32.7 g/dL (31.5-36.5); Mean Corpuscular Volume 94 fL (80-100); Mean Platelet Volume 10.1 fL (9.1-12.4); NEUTROPHILS ABSOLUTE AUTO 5.28 K/mm3 (1.96-9.15); NEUTROPHILS PERCENT AUTO 71 % (41-73); Platelet Count 246 K/mm3 (150-400); RDW Coefficient Variation 15.5 % (11.7-14.2); RDW Standard Deviation 54.1 fL (35.1-46.3); White Blood Cell Count 7.44 K/mm3 (4.00-11.30)
[2018-09-26 15:50] LABS: Source, Urine Clean Catch
[2018-09-26 15:51] LABS: Albumin, Blood 3.7 g/dL (3.4-5.0); Albumin/Globulin Ratio 0.9 (0.8-1.8); Bilirubin, Total 0.6 mg/dL (0.1-1.0); Bun/Creatinine Ratio 16.8 (12.0-20.0); Calcium, Blood 9.2 mg/dL (8.5-10.1); Creatinine, Blood 1.79 mg/dL (0.40-1.00); Globulin, Blood 4.3 g/dL (2.2-4.0); Potassium, Blood 3.6 mmol/L (3.5-5.5)
[2018-09-26 16:18] LABS: Bilirubin, Urine Neg (Neg); Blood, Urine Neg (Neg); Glucose Qualitative, Urine Neg (Neg); Ketones, Urine Neg (Neg); Leukocyte Esterase, Urine 1+ (Neg); Nitrite, Urine Neg (Neg); Protein, Urine 3+ (Neg); Specific Gravity, Urine 1.025 (1.003-1.022); Urobilinogen, Urine 1+ (Normal)
[2018-09-26 16:39] LABS: Appearance, Urine Clear (Clear); Color, Urine Yellow (P-Yellow)
[2018-09-26 16:45] LABS: Bacteria Many /hpf; Red Blood Cells, Urine Not Seen /hpf (0-2); Squamous Epithelial Cells Many /hpf (Few); White Blood Cells, Urine 0-2 /hpf (0-5)
--- NOTE | 2018-09-29 11:05 | NUR ---
Follow Up Call: Call placed to [facility] to check on status of pt's case. She was recently in the ER and it was strongly recommended to have home health follow her. Spoke to Shanae, ext [phone]. She states that they have not been following the patient. She reports that pt's son d/c'd services because he was at that time taking the patient to work with him and they could not schedule appointments at 6pm to accomodate. Call to Dr. Ortez's office. Pt was seen yesterday. I spoke with Bhanu; he reports that pt seems to be doing well, doctor has ordered a renal doppler. Call to patient, Jackelin. She answers the phone and appears to be in good spirits. Spoke to her for a little while, she reports she is doing well. She placed her caregiver on the phone and I was able to talk to her for a bit. Her name is Ginny, she has been working with patient for the last 1 month. She is working on getting Jackelin's meds figured out: Jackelin's son, Olivia, went through them and filled up a pill dispenser for her. They ran out of hyrocodone, but found a whole bottle somewhere randomly. Her pain is primarily in her back, hip, and butt, caregiver reports. Jackelin is ambulating with the help of a transfer chair and a walker. The transfer chair is new, and was requested by Ginny. Discussed care. Ginny thinks home health would be wonderful for the patient. Ginny has had wonderful experiences with [facility] in the past when taking care of her mother. Call back to Pérez's office. Bhanu reports he will get the referal sent to [facility] for home health nursing for medication managment and physical therapy for changes in the pt's ambulation and home safety. Follow up calls are made by palliative care to encourage coordination between providers, services, and patient needs on an outpatient basis. It is significantly helpful in reducing ER visits and admissions. The coordination effort of today's calls will make the pt more successful. Will remain available.
== END 2018-09-26 19:30 | disposition home or self-care (01) ==
LOC: ER 15:03
PROVIDERS: Physician Assistant
DX: I16.1 Hypertensive emergency (principal); I12.9 Hypertensive chronic kidney disease with stage 1 through stage 4 chronic kidney disease, or unspecified chronic kidney disease; N18.9 Chronic kidney disease, unspecified; E86.0 Dehydration; Z88.2 Allergy status to sulfonamides; Z88.5 Allergy status to narcotic agent; Z88.8 Allergy status to other drugs, medicaments and biological substances; Z79.899 Other long term (current) drug therapy; F17.210 Nicotine dependence, cigarettes, uncomplicated
CPT/HCPCS: 36415; 70450; 71046; 80053; 81001; 84484; 85025; 87086; 93005; 93010; 96361; 96374; 99284-25; J0360; J7030

== ENCOUNTER 2020-09-01 05:38 | Observation (INO) | payer MEDICARE ==
[~2020-09-01] VITALS: Ht 154.9 cm; Wt 53.9 kg
[2020-09-01 05:55] LABS: Calcium, Ionized (POC) 1.21 mmol/L (1.10-1.46); Chloride (POC) 101 mmol/L (98-108); Creatinine (POC) 2.5 mg/dL (0.6-1.0); Glucose (ISTAT POC) 350 mg/dL (70-99); Hemoglobin (POC) 10.5 g/dL (12.0-16.0); Potassium (POC) 4.2 mmol/L (3.5-5.5); Sodium (POC) 136 mmol/L (135-148); Total CO2 (POC) 22 mmol/L (21-32)
[2020-09-01 06:52] LABS: BASOPHILS ABSOLUTE AUTO 0.02 K/mm3 (0.00-0.23); BASOPHILS PERCENT AUTO 0 % (0-2); EOSINOPHILS ABSOLUTE AUTO 0.05 K/mm3 (0.00-0.68); EOSINOPHILS PERCENT AUTO 1 % (0-6); Hematocrit 31.4 % (33.0-51.0); Hemoglobin 9.9 g/dL (11.5-16.0); IMMATURE GRAN ABSOLUTE AUTO 0.05 K/mm3 (0.00-0.10); IMMATURE GRAN PERCENT AUTO 1 % (0-1); LYMPHOCYTES ABSOLUTE AUTO 2.24 K/mm3 (0.84-5.20); LYMPHOCYTES PERCENT AUTO 22 % (21-46); MONOCYTES ABSOLUTE AUTO 0.21 K/mm3 (0.16-1.47); MONOCYTES PERCENT AUTO 2 % (4-13); Mean Corpuscular HGB 30.7 pg (26.0-34.0); Mean Corpuscular HGB Conc 31.5 g/dL (31.5-36.5); Mean Corpuscular Volume 98 fL (80-100); Mean Platelet Volume 11.2 fL (9.1-12.4); NEUTROPHILS PERCENT AUTO 75 % (41-73); Platelet Count 268 K/mm3 (150-400); RDW Standard Deviation 46.8 fL (35.1-46.3); Red Blood Cell Count 3.22 M/mm3 (3.80-5.20); White Blood Cell Count 10.07 K/mm3 (4.00-11.30)
[2020-09-01 07:07] LABS: Alanine Aminotransfer (ALT/SGP 31 U/L (12-78); Albumin, Blood 3.1 g/dL (3.4-5.0); Albumin/Globulin Ratio 0.8 (0.8-1.8); Alk Phos 109 U/L (50-136); Anion Gap 11 mmol/L (6-16); Aspartate Aminotrans (AST/SGOT 34 U/L (12-37); Bilirubin, Total 0.3 mg/dL (0.1-1.0); Blood Urea Nitrogen 29 mg/dL (8-24); Bun/Creatinine Ratio 14.1 (12.0-20.0); CO2, Blood 21 mmol/L (21-32); Calcium, Blood 8.7 mg/dL (8.5-10.1); Chloride, Blood 104 mmol/L (98-108); Creatinine, Blood 2.05 mg/dL (0.40-1.00); Ethanol (Alcohol), Blood, Med <3 mg/dL; Globulin, Blood 3.8 g/dL (2.2-4.0); Glomerular Filtration Rate 25 (60-); Glucose, Blood 362 mg/dL (70-99); Potassium, Blood 4.5 mmol/L (3.5-5.5); Sodium, Blood 136 mmol/L (136-145); Total Protein, Blood 6.9 g/dL (6.4-8.2); Troponin I 0.248 ng/mL (0.000-0.040)
--- NOTE | 2020-09-01 09:20 | NUR ---
Assumed Care Received report from Sujey, ER-RN. Patient arrived to unit via gurney with 4L oxygen per NC. Patient is unresponsive, almost absent bilateral radial and pedal pulses. A bag with patient's POLST arrived with patient, no family present. Received report that son has been notified of patient's imminent by ER physicians. Patient had incontinent episode on transport here, changed x 2 assist. Dolly Palliative RN notified of patient's status. [place].
--- NOTE | 2020-09-01 10:20 | NUR ---
DNR BAND Purple band verified with Dolly Palliative RN and placed on R wrist.
--- NOTE | 2020-09-01 11:40 | NUR ---
pt unresponsive slighly labored. Called by nursing to review patiemt family sudheer in [facility] with DNR comfort only. Pt cold to the touch and greyish in pallor. Will monitor and assist nursing. Will update son as we have spoke before.
--- NOTE | 2020-09-01 18:05 | NUR ---
Shift Summary Patient has been unresponsive since arrival to unit, GCS 3. Reposition and personal care provided routinely. Incontinent, attends in place. Family visited briefly and understands the extent of diagnosis. Patient resting comfortably in bed. Oxygen for comfort at this time. Medicated for rattling x 3 with good effect. WCTM.
--- NOTE | 2020-09-01 19:41 | NUR ---
PT with chronic back pain & ruptured AAA with adb hematomas breathing rapidly on 2 l oxygen. Will give 1 mg ativan & 10 mg oral roxinol for comfort care.
--- NOTE | 2020-09-01 23:38 | NUR ---
turned & repositioned PT who is nonverbal except for occasional moan. She was incontinent of brown pasty BM. Continues on 2 l nc for comfort.
--- NOTE | 2020-09-02 03:42 | NUR ---
PT with no resp no pulse 0315 AM with peaceful passing. Dolly Trevino RN verified no resp no pulse. Contacted Son Olivia who has [facility] [place] [facility], MENTIONED MATHEW HESS. MORTUARY BEING CONTACTED. wATCH & SOCKS & SHIRT TO BE SENT TO MORTUARY WITH pt.
== END 2020-09-02 03:15 ==
LOC: ER 05:38 → MEDS 05:39
PROVIDERS: Emergency Medicine; ADMIT Internal Medicine
DX: I71.3 Abdominal aortic aneurysm, ruptured (principal); K66.1 Hemoperitoneum; J96.01 Acute respiratory failure with hypoxia; G93.40 Encephalopathy, unspecified; I16.0 Hypertensive urgency; R68.0 Hypothermia, not associated with low environmental temperature; I12.9 Hypertensive chronic kidney disease with stage 1 through stage 4 chronic kidney disease, or unspecified chronic kidney disease; N18.30 Chronic kidney disease, stage 3 unspecified; N17.9 Acute kidney failure, unspecified; E44.0 Moderate protein-calorie malnutrition; D63.8 Anemia in other chronic diseases classified elsewhere; Z86.73 Personal history of transient ischemic attack (TIA), and cerebral infarction without residual deficits; Z66 Do not resuscitate; Z88.5 Allergy status to narcotic agent; Z88.2 Allergy status to sulfonamides; Z88.8 Allergy status to other drugs, medicaments and biological substances
CPT/HCPCS: 36415; 71045; 74176; 80047; 80053; 82140; 84484; 85014; 85025; 93005; 93010; 96374; 96375; 99285-25; A9270; G0378; G0480; J2060; J2405; J3010; J7030